=== PATIENT | male | born 1965 | race Caucasian/White ===

== ENCOUNTER 2017-04-11 05:25 | Inpatient (IN) ==
[2017-04-11] MEDS ORDERED: ceFAZolin 1,000 MG in SYRINGE 1 EACH IV ONE (06:00)
[2017-04-11] MEDS ORDERED: ceFAZolin 1,000 MG VIAL IRRIG ONE (06:00)
[2017-04-11 06:59] LABS: Basophils # 0.2 10*3/uL (0.0-0.2); Basophils % 1.4 % (0.0-0.8); Eosinophils # 0.2 10*3/uL (0.0-0.87); Eosinophils % 1.4 % (0.00-10.9); Hematocrit 41.6 VOL% (42.0-52.0); Immature Granulocytes % 0.4 %; Immature Granulocytes Absolute 0.04 #; Lymphocytes # 2.1 10*3/uL (1.4-4.0); Lymphocytes % 19.9 % (21.2-54.2); Mean Corpuscular HGB Conc 31.3 GM/DL (32-36); Mean Corpuscular Hemoglobin 30 PG (27-34); Mean Corpuscular Volume 95.6 FL (87-102); Mean Platelet Volume 10.7 FL (9.6-12.0); Monocytes # 0.7 10*3/uL (0.11-0.8); Monocytes % 6.6 % (1.7-12.7); Neutrophils # 7.3 10*3/uL (1.4-7.4); Neutrophils % 70.3 % (38.7-73.9); Platelet Count 308 T/CUMM (130-400); Red Blood Count 4.35 MC/CUMM (3.8-5.5); Red Cell Distribution Width 15.9 % (9.3-17.3); White Blood Count 10.4 T/CUMM (4-12)
[2017-04-11 07:36] LABS: Osmolality,Calculated 301.5 MOS/KG (273-304); Potassium 3.5 MMOL/L (3.5-5.1)
[2017-04-11 07:43] LABS: Apearance,Urine CLEAR (Clear); Bilirubin,Urine Negative (Negative); Blood, Urine Small mg/dL (Negative); Glucose,Urine (UA) >=500 mg/dL (Negative); Ketones,Urine 5 mg/dL (Negative); Nitrite,Urine Negative (Negative); Protein,Urine >=500 MG/DL; RBC,Urine 1 /HPF (0-4); Urine Color Yellow (Yellow); Urine Urobilinogen < 2.0 EU/DL (0.2-1.0); WBC,Urine 1 /HPF (0-6)
[2017-04-11] MEDS ORDERED: guaiFENesin/DM ER 600-30 MG TABLET PO PRN (07:48)
[2017-04-11] MEDS ORDERED: BISACODYL 5 MG TABLET PO PRN (07:48)
[2017-04-11] MEDS ORDERED: ZALEPLON 5 MG CAPSULE PO PRN (07:48)
[2017-04-11] MEDS ORDERED: NICOTINE 21 MG/24 HR PATCH TRANSDERM PRN (07:48)
[2017-04-11] MEDS ORDERED: ONDANSETRON 4 MG/2 ML VIAL IV PRN (07:48)
[2017-04-11] MEDS ORDERED: MAGNESIUM SULF RIDER 4 GM in PREMIX 1 EACH IV PRN (07:48)
[2017-04-11] MEDS ORDERED: MAGNESIUM SULF RIDER 2 GM in PREMIX 1 EACH IV PRN (07:48)
[2017-04-11] MEDS ORDERED: GLUCAGON 1 MG VIAL IM PRN ×2 (07:48→11:28)
[2017-04-11] MEDS ORDERED: INSULIN REGULAR 100 UNIT/ML SUBCUT ONE (07:54)
[2017-04-11] MEDS ORDERED: MAGNESIUM SULF RIDER 50 ML IV ONE (08:21)
[2017-04-11] MEDS ORDERED: POTASSIUM CHLORIDE 20 MEQ PACK PO ONE (08:22)
[2017-04-11] MEDS ORDERED: ALPRAZolam 0.25 MG TABLET PO PRN (10:41)
[2017-04-11] MEDS: LISINOPRIL 10 MG TABLET PO SCH (11:10)
[2017-04-11] MEDS: CLOPIDOGREL 75 MG TABLET PO SCH (11:13)
[2017-04-11] MEDS: ASPIRIN EC 81 MG TABLET PO SCH (11:13)
[2017-04-11] MEDS: PANTOPRAZOLE 40 MG TABLET PO SCH (11:14)
[2017-04-11] MEDS: SPIRONOLACTONE 25 MG TABLET PO SCH (11:14)
[2017-04-11] MEDS: ENOXAPARIN 40 MG/0.4 ML SYRINGE SUBCUT SCH (11:16)
[2017-04-11] MEDS: AZITHROMYCIN 250 MG TABLET PO SCH (11:16)
[2017-04-11] MEDS ORDERED: DEXTROSE 50% 25 GM/50 ML VIAL IV PRN (11:28)
[2017-04-11] MEDS: MAGNESIUM OXIDE 400 MG TABLET PO SCH ×2 (13:08→21:51)
[2017-04-11 13:13] LABS: Calcium 7.4 MG/DL (8.5-10.1); Osmolality,Calculated 286.8 MOS/KG (273-304); Potassium 3.1 MMOL/L (3.5-5.1)
[2017-04-11] MEDS: CARVEDILOL 6.25 MG TABLET PO SCH ×2 (13:16→21:51)
[2017-04-11] MEDS: GABAPENTIN 100 MG CAPSULE PO SCH ×3 (13:16→21:52)
[2017-04-11] MEDS ORDERED: POTASSIUM CHLORIDE 20 MEQ TABLET PO ONE (13:28)
[2017-04-11] MEDS: POTASSIUM CHLORIDE 20 MEQ TABLET PO SCH ×2 (13:30→21:52)
[2017-04-11] MEDS: INSULIN LISPRO 100 UNIT/ML SUBCUT SCH ×3 (13:55→21:52)
[2017-04-11] MEDS: cefTRIAXone 1,000 MG in SYRINGE 1 EACH IV SCH (15:17)
[2017-04-11] MEDS: INSULIN GLARGINE 100 UNIT/ML SUBCUT SCH (16:01)
[2017-04-11] MEDS ORDERED: PNEUMOCOCCAL VACCINE (13 VALENT) 0.5 ML SYRINGE IM ONE (16:14)
[2017-04-11] MEDS ORDERED: INFLUENZA VIRUS VACCINE 0.5 ML SYRINGE IM ONE (16:14)
[2017-04-11] MEDS: ALBUTEROL 2.5 MG/3 ML NEB RESP TX PRN (16:20)
[2017-04-11] MEDS: ACETAMINOPHEN 325 MG TABLET PO PRN (21:51)
[2017-04-11] MEDS: ATORVASTATIN 80 MG TABLET PO SCH (21:51)
[2017-04-12 05:11] LABS: Basophils # 0.1 10*3/uL (0.0-0.2); Basophils % 1.2 % (0.0-0.8); Eosinophils # 0.4 10*3/uL (0.0-0.87); Eosinophils % 3.9 % (0.00-10.9); Hematocrit 36.1 VOL% (42.0-52.0); Hemoglobin 12.2 GM/DL (14.0-18.0); Immature Granulocytes % 0.3 %; Immature Granulocytes Absolute 0.03 #; Lymphocytes # 2.7 10*3/uL (1.4-4.0); Lymphocytes % 26.6 % (21.2-54.2); Mean Corpuscular HGB Conc 33.8 GM/DL (32-36); Mean Corpuscular Hemoglobin 31 PG (27-34); Mean Corpuscular Volume 90.3 FL (87-102); Mean Platelet Volume 10.8 FL (9.6-12.0); Monocytes # 0.6 10*3/uL (0.11-0.8); Monocytes % 6.4 % (1.7-12.7); Neutrophils # 6.2 10*3/uL (1.4-7.4); Neutrophils % 61.6 % (38.7-73.9); Platelet Count 276 T/CUMM (130-400); Red Cell Distribution Width 15.9 % (9.3-17.3)
[2017-04-12 05:42] LABS: Calcium 7.7 MG/DL (8.5-10.1); Osmolality,Calculated 279.4 MOS/KG (273-304); Potassium 3.4 MMOL/L (3.5-5.1)
[2017-04-12 06:06] LABS: Calcium 7.4 MG/DL (8.5-10.1); Osmolality,Calculated 279.4 MOS/KG (273-304); Potassium 3.4 MMOL/L (3.5-5.1); Thyroid Stimulating Hormone 4.2 uIU/ml (0.358-3.74)
[2017-04-12] MEDS ORDERED: ALBUTEROL 0.63 MG/3 ML NEB RESP TX PRN (08:00)
[2017-04-12] MEDS ORDERED: ceFAZolin 1,000 MG VIAL IRRIG ONE ×2 (08:00→08:30)
[2017-04-12] MEDS ORDERED: ceFAZolin 1,000 MG in SYRINGE 1 EACH IV ONE (08:00)
[2017-04-12] MEDS: INSULIN LISPRO 100 UNIT/ML SUBCUT SCH ×4 (10:11→21:31)
[2017-04-12] MEDS: ENOXAPARIN 40 MG/0.4 ML SYRINGE SUBCUT SCH (10:11)
[2017-04-12] MEDS: AZITHROMYCIN 250 MG TABLET PO SCH (10:12)
[2017-04-12] MEDS: LISINOPRIL 10 MG TABLET PO SCH (10:12)
[2017-04-12] MEDS: POTASSIUM CHLORIDE 20 MEQ TABLET PO SCH ×2 (10:12→21:30)
[2017-04-12] MEDS: MAGNESIUM OXIDE 400 MG TABLET PO SCH ×2 (10:12→21:30)
[2017-04-12] MEDS: GABAPENTIN 100 MG CAPSULE PO SCH ×3 (10:12→21:31)
[2017-04-12] MEDS: PANTOPRAZOLE 40 MG TABLET PO SCH (10:13)
[2017-04-12] MEDS: CLOPIDOGREL 75 MG TABLET PO SCH (10:13)
[2017-04-12] MEDS: SPIRONOLACTONE 25 MG TABLET PO SCH (10:13)
[2017-04-12] MEDS: ASPIRIN EC 81 MG TABLET PO SCH (10:13)
[2017-04-12] MEDS: CARVEDILOL 6.25 MG TABLET PO SCH ×2 (10:13→22:09)
[2017-04-12] MEDS: cefTRIAXone 1,000 MG in SYRINGE 1 EACH IV SCH (10:13)
[2017-04-12] MEDS: LURASIDONE HCL PO SCH ×2 (10:15→10:19)
[2017-04-12] MEDS: FUROSEMIDE 40 MG/4 ML VIAL IV SCH ×2 (10:15→16:04)
[2017-04-12] MEDS: INSULIN GLARGINE 100 UNIT/ML SUBCUT SCH (13:16)
[2017-04-12] MEDS: ALBUTEROL 0.63 MG/3 ML NEB RESP TX SCH ×2 (14:52→19:22)
[2017-04-12] MEDS ORDERED: SKIN HEALING OINT (AQUAPHOR) 50 GM TUBE TOP PRN (15:29)
[2017-04-12] MEDS ORDERED: diphenhydrAMINE CAP 25 MG CAPSULE PO PRN (16:15)
[2017-04-12] MEDS ORDERED: MAGNESIUM SULF RIDER 2 GM in PREMIX 1 EACH IV PRN (16:17)
[2017-04-12] MEDS ORDERED: MAGNESIUM SULF RIDER 4 GM in PREMIX 1 EACH IV PRN (16:17)
[2017-04-12] MEDS: BACITRACIN OINT 0.9 GM PACK TOP SCH (18:24)
[2017-04-12] MEDS: ATORVASTATIN 80 MG TABLET PO SCH (21:31)
[2017-04-13] MEDS: ACETAMINOPHEN 325 MG TABLET PO PRN ×2 (01:12→21:43)
[2017-04-13 04:58] LABS: Basophils # 0.2 10*3/uL (0.0-0.2); Basophils % 1.5 % (0.0-0.8); Eosinophils # 0.4 10*3/uL (0.0-0.87); Eosinophils % 3.9 % (0.00-10.9); Hematocrit 37.8 VOL% (42.0-52.0); Hemoglobin 11.9 GM/DL (14.0-18.0); Immature Granulocytes % 0.3 %; Immature Granulocytes Absolute 0.03 #; Lymphocytes % 29.9 % (21.2-54.2); Mean Corpuscular HGB Conc 31.5 GM/DL (32-36); Mean Corpuscular Hemoglobin 30 PG (27-34); Mean Corpuscular Volume 94.5 FL (87-102); Mean Platelet Volume 10.1 FL (9.6-12.0); Monocytes # 0.7 10*3/uL (0.11-0.8); Monocytes % 6.4 % (1.7-12.7); Neutrophils # 5.9 10*3/uL (1.4-7.4); Platelet Count 345 T/CUMM (130-400); Red Cell Distribution Width 16.3 % (9.3-17.3); White Blood Count 10.1 T/CUMM (4-12)
[2017-04-13 05:34] LABS: Calcium 7.6 MG/DL (8.5-10.1); Osmolality,Calculated 274.5 MOS/KG (273-304); Potassium 4.1 MMOL/L (3.5-5.1)
[2017-04-13] MEDS: ALBUTEROL 0.63 MG/3 ML NEB RESP TX SCH ×4 (07:29→19:47)
[2017-04-13] MEDS: DEXTROSE 50% 25 GM/50 ML VIAL IV PRN (07:42)
[2017-04-13] MEDS: INSULIN LISPRO 100 UNIT/ML SUBCUT SCH ×4 (07:49→21:53)
[2017-04-13] MEDS: cefTRIAXone 1,000 MG in SYRINGE 1 EACH IV SCH (09:45)
[2017-04-13] MEDS: ENOXAPARIN 40 MG/0.4 ML SYRINGE SUBCUT SCH (09:45)
[2017-04-13] MEDS: FUROSEMIDE 40 MG/4 ML VIAL IV SCH ×2 (09:45→16:09)
[2017-04-13] MEDS: LISINOPRIL 10 MG TABLET PO SCH (11:17)
[2017-04-13] MEDS: AZITHROMYCIN 250 MG TABLET PO SCH (11:17)
[2017-04-13] MEDS: BACITRACIN OINT 0.9 GM PACK TOP SCH (11:17)
[2017-04-13] MEDS: CARVEDILOL 6.25 MG TABLET PO SCH ×2 (11:17→21:43)
[2017-04-13] MEDS: CLOPIDOGREL 75 MG TABLET PO SCH (11:17)
[2017-04-13] MEDS: SPIRONOLACTONE 25 MG TABLET PO SCH (11:18)
[2017-04-13] MEDS: MAGNESIUM OXIDE 400 MG TABLET PO SCH ×2 (11:18→21:42)
[2017-04-13] MEDS: PANTOPRAZOLE 40 MG TABLET PO SCH (11:18)
[2017-04-13] MEDS: POTASSIUM CHLORIDE 20 MEQ TABLET PO SCH ×2 (11:18→21:42)
[2017-04-13] MEDS: GABAPENTIN 100 MG CAPSULE PO SCH ×3 (11:19→21:42)
[2017-04-13] MEDS: ASPIRIN EC 81 MG TABLET PO SCH (11:19)
[2017-04-13] MEDS: LURASIDONE HCL PO SCH (11:20)
[2017-04-13] MEDS: INSULIN GLARGINE 100 UNIT/ML SUBCUT SCH (11:53)
[2017-04-13] MEDS ORDERED: INSULIN GLARGINE 100 UNIT/ML SUBCUT SCH (16:57)
[2017-04-13] MEDS: ATORVASTATIN 80 MG TABLET PO SCH (21:42)
[2017-04-13] MEDS: CHLORHEXIDINE 0.12% ORAL RINSE 60 ML BOTTLE SWISH/SPIT SCH (21:53)
[2017-04-14] MEDS: ALBUTEROL 0.63 MG/3 ML NEB RESP TX SCH ×4 (01:36→18:51)
[2017-04-14 05:14] LABS: Basophils # 0.1 10*3/uL (0.0-0.2); Basophils % 1.3 % (0.0-0.8); Eosinophils # 0.3 10*3/uL (0.0-0.87); Eosinophils % 3.8 % (0.00-10.9); Hematocrit 35.3 VOL% (42.0-52.0); Hemoglobin 11.4 GM/DL (14.0-18.0); Immature Granulocytes % 0.4 %; Immature Granulocytes Absolute 0.03 #; Lymphocytes # 2.5 10*3/uL (1.4-4.0); Mean Corpuscular HGB Conc 32.3 GM/DL (32-36); Mean Corpuscular Hemoglobin 31 PG (27-34); Mean Corpuscular Volume 94.9 FL (87-102); Mean Platelet Volume 10.9 FL (9.6-12.0); Monocytes # 0.6 10*3/uL (0.11-0.8); Monocytes % 6.7 % (1.7-12.7); Neutrophils # 4.8 10*3/uL (1.4-7.4); Neutrophils % 57.8 % (38.7-73.9); Platelet Count 267 T/CUMM (130-400); Red Blood Count 3.72 MC/CUMM (3.8-5.5); Red Cell Distribution Width 16.6 % (9.3-17.3); White Blood Count 8.4 T/CUMM (4-12)
[2017-04-14 05:46] LABS: Calcium 7.9 MG/DL (8.5-10.1); Osmolality,Calculated 286.1 MOS/KG (273-304); Potassium 4.7 MMOL/L (3.5-5.1)
[2017-04-14 05:47] LABS: Calcium 7.9 MG/DL (8.5-10.1); Osmolality,Calculated 284.3 MOS/KG (273-304); Potassium 4.6 MMOL/L (3.5-5.1)
[2017-04-14] MEDS: ASPIRIN EC 81 MG TABLET PO SCH (09:18)
[2017-04-14] MEDS: POTASSIUM CHLORIDE 20 MEQ TABLET PO SCH ×2 (09:18→21:34)
[2017-04-14] MEDS: AZITHROMYCIN 250 MG TABLET PO SCH (09:19)
[2017-04-14] MEDS: CARVEDILOL 6.25 MG TABLET PO SCH ×2 (09:19→21:29)
[2017-04-14] MEDS: CLOPIDOGREL 75 MG TABLET PO SCH (09:19)
[2017-04-14] MEDS: MAGNESIUM OXIDE 400 MG TABLET PO SCH ×2 (09:19→21:29)
[2017-04-14] MEDS: PANTOPRAZOLE 40 MG TABLET PO SCH (09:19)
[2017-04-14] MEDS: SPIRONOLACTONE 25 MG TABLET PO SCH (09:20)
[2017-04-14] MEDS: LISINOPRIL 10 MG TABLET PO SCH (09:20)
[2017-04-14] MEDS: BACITRACIN OINT 0.9 GM PACK TOP SCH (09:20)
[2017-04-14] MEDS: ENOXAPARIN 40 MG/0.4 ML SYRINGE SUBCUT SCH (09:20)
[2017-04-14] MEDS: GABAPENTIN 100 MG CAPSULE PO SCH ×3 (09:20→21:28)
[2017-04-14] MEDS: FUROSEMIDE 40 MG/4 ML VIAL IV SCH (09:25)
[2017-04-14] MEDS: INSULIN LISPRO 100 UNIT/ML SUBCUT SCH ×4 (09:31→21:34)
[2017-04-14] MEDS: CHLORHEXIDINE 0.12% ORAL RINSE 60 ML BOTTLE SWISH/SPIT SCH ×2 (09:32→21:27)
[2017-04-14] MEDS: LURASIDONE HCL PO SCH (09:33)
[2017-04-14] MEDS: cefTRIAXone 1,000 MG in SYRINGE 1 EACH IV SCH (10:11)
[2017-04-14] MEDS: ZINC OXIDE PASTE 113 GM TUBE TOP SCH ×2 (13:06→21:30)
[2017-04-14] MEDS: FUROSEMIDE 40 MG TABLET PO SCH (15:44)
[2017-04-14] MEDS: ATORVASTATIN 80 MG TABLET PO SCH (21:28)
[2017-04-15] MEDS: ALBUTEROL 0.63 MG/3 ML NEB RESP TX SCH ×4 (00:09→19:36)
[2017-04-15 05:21] LABS: Basophils # 0.1 10*3/uL (0.0-0.2); Basophils % 1.5 % (0.0-0.8); Eosinophils # 0.3 10*3/uL (0.0-0.87); Eosinophils % 3.1 % (0.00-10.9); Hematocrit 37.8 VOL% (42.0-52.0); Hemoglobin 12.2 GM/DL (14.0-18.0); Immature Granulocytes % 0.3 %; Immature Granulocytes Absolute 0.03 #; Lymphocytes # 3.1 10*3/uL (1.4-4.0); Lymphocytes % 33.5 % (21.2-54.2); Mean Corpuscular HGB Conc 32.3 GM/DL (32-36); Mean Corpuscular Hemoglobin 30 PG (27-34); Mean Corpuscular Volume 93.8 FL (87-102); Mean Platelet Volume 10.7 FL (9.6-12.0); Monocytes # 0.7 10*3/uL (0.11-0.8); Monocytes % 7.2 % (1.7-12.7); Neutrophils # 5.1 10*3/uL (1.4-7.4); Neutrophils % 54.4 % (38.7-73.9); Platelet Count 319 T/CUMM (130-400); Red Blood Count 4.03 MC/CUMM (3.8-5.5); Red Cell Distribution Width 16.6 % (9.3-17.3); White Blood Count 9.3 T/CUMM (4-12)
[2017-04-15 05:44] LABS: Osmolality,Calculated 276.5 MOS/KG (273-304)
[2017-04-15] MEDS: INSULIN LISPRO 100 UNIT/ML SUBCUT SCH ×4 (07:15→21:17)
[2017-04-15] MEDS: POTASSIUM CHLORIDE 20 MEQ TABLET PO SCH (09:34)
[2017-04-15] MEDS: BACITRACIN OINT 0.9 GM PACK TOP SCH (09:35)
[2017-04-15] MEDS: ENOXAPARIN 40 MG/0.4 ML SYRINGE SUBCUT SCH (09:35)
[2017-04-15] MEDS: PANTOPRAZOLE 40 MG TABLET PO SCH (09:36)
[2017-04-15] MEDS: CLOPIDOGREL 75 MG TABLET PO SCH (09:36)
[2017-04-15] MEDS: GABAPENTIN 100 MG CAPSULE PO SCH ×3 (09:36→21:19)
[2017-04-15] MEDS: CARVEDILOL 6.25 MG TABLET PO SCH ×2 (09:36→21:20)
[2017-04-15] MEDS: SPIRONOLACTONE 25 MG TABLET PO SCH (09:36)
[2017-04-15] MEDS: SODIUM POLYSTYRENE SULFATE 15 GM/60 ML BOTTLE PO SCH ×2 (09:36→09:48)
[2017-04-15] MEDS: MAGNESIUM OXIDE 400 MG TABLET PO SCH ×2 (09:36→21:18)
[2017-04-15] MEDS: ASPIRIN EC 81 MG TABLET PO SCH (09:37)
[2017-04-15] MEDS: LISINOPRIL 10 MG TABLET PO SCH (09:37)
[2017-04-15] MEDS: AZITHROMYCIN 250 MG TABLET PO SCH (09:37)
[2017-04-15] MEDS: FUROSEMIDE 40 MG TABLET PO SCH ×2 (09:37→15:35)
[2017-04-15] MEDS: ZINC OXIDE PASTE 113 GM TUBE TOP SCH ×2 (09:38→21:19)
[2017-04-15] MEDS: LURASIDONE HCL PO SCH (09:38)
[2017-04-15] MEDS: CHLORHEXIDINE 0.12% ORAL RINSE 60 ML BOTTLE SWISH/SPIT SCH ×2 (09:38→21:16)
[2017-04-15] MEDS ORDERED: SODIUM POLYSTYRENE SULFATE 15 GM/60 ML BOTTLE PO STA (11:18)
[2017-04-15] MEDS: INSULIN NPH/REGULAR 70/30 100 UNIT/ML SUBCUT SCH (15:34)
[2017-04-15] MEDS: ATORVASTATIN 80 MG TABLET PO SCH (21:18)
[2017-04-15] MEDS: AMITRIPTYLINE 50 MG TABLET PO SCH (21:20)
[2017-04-16] MEDS: ACETAMINOPHEN 325 MG TABLET PO PRN ×2 (00:05→12:55)
[2017-04-16] MEDS: ALBUTEROL 0.63 MG/3 ML NEB RESP TX SCH ×4 (01:25→19:04)
[2017-04-16] MEDS: DEXTROSE 50% 25 GM/50 ML VIAL IV PRN (04:58)
[2017-04-16 05:41] LABS: Basophils # 0.1 10*3/uL (0.0-0.2); Eosinophils # 0.3 10*3/uL (0.0-0.87); Eosinophils % 2.4 % (0.00-10.9); Hematocrit 36.1 VOL% (42.0-52.0); Hemoglobin 11.4 GM/DL (14.0-18.0); Immature Granulocytes % 0.5 %; Immature Granulocytes Absolute 0.05 #; Lymphocytes % 18.6 % (21.2-54.2); Mean Corpuscular HGB Conc 31.6 GM/DL (32-36); Mean Corpuscular Hemoglobin 30 PG (27-34); Mean Corpuscular Volume 95.3 FL (87-102); Mean Platelet Volume 10.7 FL (9.6-12.0); Monocytes # 0.7 10*3/uL (0.11-0.8); Monocytes % 6.7 % (1.7-12.7); Neutrophils # 7.5 10*3/uL (1.4-7.4); Neutrophils % 70.8 % (38.7-73.9); Platelet Count 250 T/CUMM (130-400); Red Blood Count 3.79 MC/CUMM (3.8-5.5); Red Cell Distribution Width 16.2 % (9.3-17.3); White Blood Count 10.6 T/CUMM (4-12)
[2017-04-16 06:04] LABS: Calcium 8.4 MG/DL (8.5-10.1); Osmolality,Calculated 277.8 MOS/KG (273-304); Potassium 5.1 MMOL/L (3.5-5.1)
[2017-04-16] MEDS: GABAPENTIN 100 MG CAPSULE PO SCH ×3 (09:16→21:19)
[2017-04-16] MEDS: MAGNESIUM OXIDE 400 MG TABLET PO SCH ×2 (09:16→21:12)
[2017-04-16] MEDS: LISINOPRIL 20 MG TABLET PO SCH (09:16)
[2017-04-16] MEDS: CLOPIDOGREL 75 MG TABLET PO SCH (09:16)
[2017-04-16] MEDS: ASPIRIN EC 81 MG TABLET PO SCH (09:16)
[2017-04-16] MEDS: AZITHROMYCIN 250 MG TABLET PO SCH (09:16)
[2017-04-16] MEDS: PANTOPRAZOLE 40 MG TABLET PO SCH (09:17)
[2017-04-16] MEDS: BACITRACIN OINT 0.9 GM PACK TOP SCH (09:17)
[2017-04-16] MEDS: CARVEDILOL 6.25 MG TABLET PO SCH ×2 (09:17→21:12)
[2017-04-16] MEDS: CHLORHEXIDINE 0.12% ORAL RINSE 60 ML BOTTLE SWISH/SPIT SCH ×2 (09:17→21:20)
[2017-04-16] MEDS: ENOXAPARIN 40 MG/0.4 ML SYRINGE SUBCUT SCH (09:18)
[2017-04-16] MEDS: FUROSEMIDE 40 MG/4 ML VIAL IV SCH ×2 (09:18→16:05)
[2017-04-16] MEDS: LURASIDONE HCL PO SCH (09:18)
[2017-04-16] MEDS: INSULIN LISPRO 100 UNIT/ML SUBCUT SCH ×4 (09:19→21:13)
[2017-04-16] MEDS: INSULIN NPH/REGULAR 70/30 100 UNIT/ML SUBCUT SCH (09:19)
[2017-04-16] MEDS: ZINC OXIDE PASTE 113 GM TUBE TOP SCH ×2 (09:23→21:13)
[2017-04-16] MEDS: NICOTINE 14 MG/24 HR PATCH TRANSDERM SCH (11:39)
[2017-04-16] MEDS: AMITRIPTYLINE 50 MG TABLET PO SCH (21:12)
[2017-04-16] MEDS: ATORVASTATIN 80 MG TABLET PO SCH (21:12)
[2017-04-17] MEDS: ALBUTEROL 0.63 MG/3 ML NEB RESP TX SCH ×4 (01:30→21:13)
[2017-04-17 05:01] LABS: Basophils # 0.1 10*3/uL (0.0-0.2); Basophils % 1.4 % (0.0-0.8); Eosinophils # 0.3 10*3/uL (0.0-0.87); Eosinophils % 4.1 % (0.00-10.9); Hematocrit 34.3 VOL% (42.0-52.0); Hemoglobin 10.9 GM/DL (14.0-18.0); Immature Granulocytes % 0.8 %; Immature Granulocytes Absolute 0.06 #; Lymphocytes # 2.4 10*3/uL (1.4-4.0); Lymphocytes % 32.9 % (21.2-54.2); Mean Corpuscular HGB Conc 31.8 GM/DL (32-36); Mean Corpuscular Hemoglobin 30 PG (27-34); Mean Corpuscular Volume 94.2 FL (87-102); Mean Platelet Volume 11.2 FL (9.6-12.0); Monocytes # 0.5 10*3/uL (0.11-0.8); Monocytes % 6.8 % (1.7-12.7); Platelet Count 248 T/CUMM (130-400); Red Blood Count 3.64 MC/CUMM (3.8-5.5); Red Cell Distribution Width 16.4 % (9.3-17.3); White Blood Count 7.3 T/CUMM (4-12)
[2017-04-17 05:28] LABS: Calcium 8.1 MG/DL (8.5-10.1); Osmolality,Calculated 282.2 MOS/KG (273-304); Potassium 5.7 MMOL/L (3.5-5.1)
[2017-04-17 05:37] LABS: Calcium 7.9 MG/DL (8.5-10.1); Osmolality,Calculated 283.2 MOS/KG (273-304); Potassium 5.7 MMOL/L (3.5-5.1)
[2017-04-17] MEDS ORDERED: ceFAZolin 1,000 MG in SYRINGE 1 EACH IV ONE (06:30)
[2017-04-17] MEDS ORDERED: ceFAZolin 1,000 MG VIAL IRRIG ONE (06:30)
[2017-04-17] MEDS: FUROSEMIDE 40 MG/4 ML VIAL IV SCH (08:58)
[2017-04-17] MEDS: ENOXAPARIN 40 MG/0.4 ML SYRINGE SUBCUT SCH (08:59)
[2017-04-17] MEDS: NICOTINE 14 MG/24 HR PATCH TRANSDERM SCH (08:59)
[2017-04-17] MEDS: INSULIN NPH/REGULAR 70/30 100 UNIT/ML SUBCUT SCH ×3 (08:59→18:03)
[2017-04-17 12:49] LABS: Calcium 8.6 MG/DL (8.5-10.1); Osmolality,Calculated 284.2 MOS/KG (273-304); Potassium 5.3 MMOL/L (3.5-5.1)
[2017-04-17] MEDS: INSULIN LISPRO 100 UNIT/ML SUBCUT SCH ×4 (13:02→21:10)
[2017-04-17] MEDS: ASPIRIN EC 81 MG TABLET PO SCH ×2 (13:32→16:59)
[2017-04-17] MEDS: CARVEDILOL 6.25 MG TABLET PO SCH ×3 (13:32→21:09)
[2017-04-17] MEDS: GABAPENTIN 100 MG CAPSULE PO SCH ×3 (13:33→21:10)
[2017-04-17] MEDS: PANTOPRAZOLE 40 MG TABLET PO SCH (13:33)
[2017-04-17] MEDS: MAGNESIUM OXIDE 400 MG TABLET PO SCH ×2 (13:33→21:09)
[2017-04-17] MEDS: LISINOPRIL 20 MG TABLET PO SCH (13:33)
[2017-04-17] MEDS: AZITHROMYCIN 250 MG TABLET PO SCH ×2 (13:33→17:00)
[2017-04-17] MEDS: BACITRACIN OINT 0.9 GM PACK TOP SCH (13:34)
[2017-04-17] MEDS: CHLORHEXIDINE 0.12% ORAL RINSE 60 ML BOTTLE SWISH/SPIT SCH ×2 (13:34→22:10)
[2017-04-17] MEDS: LURASIDONE HCL PO SCH (13:34)
[2017-04-17] MEDS: ZINC OXIDE PASTE 113 GM TUBE TOP SCH ×2 (13:34→21:12)
[2017-04-17] MEDS ORDERED: LIDOCAINE 1% 20 ML VIAL ONE (13:44)
[2017-04-17] MEDS ORDERED: fentaNYL 100 MCG/2 ML VIAL ONE (13:45)
[2017-04-17] MEDS ORDERED: MIDAZOLAM 2 MG/2 ML VIAL ONE (13:45)
[2017-04-17] MEDS ORDERED: TISSUE ADHESIVE 1 EACH APPLICATOR TOP ONE (13:45)
[2017-04-17] MEDS ORDERED: HEPARIN/NACL 0.9% 2 UNITS/ML 1,000 ML IV ONE (13:46)
[2017-04-17] MEDS: FUROSEMIDE 40 MG TABLET PO SCH (16:46)
[2017-04-17] MEDS: AMITRIPTYLINE 50 MG TABLET PO SCH (21:09)
[2017-04-17] MEDS: ATORVASTATIN 80 MG TABLET PO SCH (21:09)
[2017-04-17] MEDS: ceFAZolin 1,000 MG in SYRINGE 1 EACH IV SCH (22:10)
[2017-04-18] MEDS: ALBUTEROL 0.63 MG/3 ML NEB RESP TX SCH ×4 (01:55→19:10)
[2017-04-18 04:42] LABS: Basophils # 0.1 10*3/uL (0.0-0.2); Basophils % 1.3 % (0.0-0.8); Eosinophils # 0.3 10*3/uL (0.0-0.87); Hematocrit 33.2 VOL% (42.0-52.0); Hemoglobin 10.9 GM/DL (14.0-18.0); Immature Granulocytes % 0.3 %; Immature Granulocytes Absolute 0.02 #; Lymphocytes # 2.1 10*3/uL (1.4-4.0); Lymphocytes % 27.4 % (21.2-54.2); Mean Corpuscular HGB Conc 32.8 GM/DL (32-36); Mean Corpuscular Hemoglobin 30 PG (27-34); Mean Corpuscular Volume 92.2 FL (87-102); Mean Platelet Volume 10.8 FL (9.6-12.0); Monocytes # 0.6 10*3/uL (0.11-0.8); Monocytes % 7.2 % (1.7-12.7); Neutrophils # 4.5 10*3/uL (1.4-7.4); Neutrophils % 59.8 % (38.7-73.9); Platelet Count 269 T/CUMM (130-400); Red Cell Distribution Width 16.3 % (9.3-17.3); White Blood Count 7.6 T/CUMM (4-12)
[2017-04-18 05:22] LABS: Osmolality,Calculated 277.1 MOS/KG (273-304); Potassium 4.9 MMOL/L (3.5-5.1)
[2017-04-18] MEDS: ceFAZolin 1,000 MG in SYRINGE 1 EACH IV SCH (05:38)
[2017-04-18] MEDS: CARVEDILOL 6.25 MG TABLET PO SCH ×2 (09:31→21:06)
[2017-04-18] MEDS: ENOXAPARIN 40 MG/0.4 ML SYRINGE SUBCUT SCH (09:31)
[2017-04-18] MEDS: MAGNESIUM OXIDE 400 MG TABLET PO SCH ×2 (09:31→21:05)
[2017-04-18] MEDS: FUROSEMIDE 40 MG TABLET PO SCH ×2 (09:32→16:28)
[2017-04-18] MEDS: AZITHROMYCIN 250 MG TABLET PO SCH (09:32)
[2017-04-18] MEDS: ASPIRIN EC 81 MG TABLET PO SCH (09:32)
[2017-04-18] MEDS: LURASIDONE HCL PO SCH (09:32)
[2017-04-18] MEDS: GABAPENTIN 100 MG CAPSULE PO SCH ×3 (09:32→21:06)
[2017-04-18] MEDS: PANTOPRAZOLE 40 MG TABLET PO SCH (09:32)
[2017-04-18] MEDS: ZINC OXIDE PASTE 113 GM TUBE TOP SCH ×2 (09:33→21:06)
[2017-04-18] MEDS: BACITRACIN OINT 0.9 GM PACK TOP SCH (09:33)
[2017-04-18] MEDS: INSULIN NPH/REGULAR 70/30 100 UNIT/ML SUBCUT SCH ×2 (09:34→16:29)
[2017-04-18] MEDS: INSULIN LISPRO 100 UNIT/ML SUBCUT SCH ×4 (09:34→22:25)
[2017-04-18] MEDS: CHLORHEXIDINE 0.12% ORAL RINSE 60 ML BOTTLE SWISH/SPIT SCH ×2 (09:34→21:08)
[2017-04-18] MEDS: NICOTINE 14 MG/24 HR PATCH TRANSDERM SCH (09:42)
[2017-04-18] MEDS ORDERED: TUBERCULIN SKIN TEST 0.1 ML SYRINGE INTRADERM ONE (10:30)
[2017-04-18] MEDS ORDERED: INSULIN NPH/REGULAR 70/30 100 UNIT/ML SUBCUT SCH (16:30)
[2017-04-18] MEDS: ATORVASTATIN 80 MG TABLET PO SCH (21:06)
[2017-04-18] MEDS: AMITRIPTYLINE 50 MG TABLET PO SCH (21:06)
[2017-04-19] MEDS: ALBUTEROL 0.63 MG/3 ML NEB RESP TX SCH ×4 (00:04→20:58)
[2017-04-19] MEDS: ALBUTEROL 2.5 MG/3 ML NEB RESP TX PRN (07:01)
[2017-04-19] MEDS: MAGNESIUM OXIDE 400 MG TABLET PO SCH ×2 (09:15→21:27)
[2017-04-19] MEDS: ASPIRIN EC 81 MG TABLET PO SCH (09:15)
[2017-04-19] MEDS: BACITRACIN OINT 0.9 GM PACK TOP SCH (09:15)
[2017-04-19] MEDS: FUROSEMIDE 40 MG TABLET PO SCH ×2 (09:15→16:33)
[2017-04-19] MEDS: AZITHROMYCIN 250 MG TABLET PO SCH (09:16)
[2017-04-19] MEDS: PANTOPRAZOLE 40 MG TABLET PO SCH (09:16)
[2017-04-19] MEDS: CLOPIDOGREL 75 MG TABLET PO SCH (09:16)
[2017-04-19] MEDS: CARVEDILOL 6.25 MG TABLET PO SCH ×2 (09:17→21:27)
[2017-04-19] MEDS: NICOTINE 14 MG/24 HR PATCH TRANSDERM SCH (09:17)
[2017-04-19] MEDS: GABAPENTIN 100 MG CAPSULE PO SCH ×3 (09:17→21:27)
[2017-04-19] MEDS: INSULIN LISPRO 100 UNIT/ML SUBCUT SCH ×4 (09:20→21:33)
[2017-04-19] MEDS: INSULIN NPH/REGULAR 70/30 100 UNIT/ML SUBCUT SCH ×2 (09:20→17:44)
[2017-04-19] MEDS: ENOXAPARIN 40 MG/0.4 ML SYRINGE SUBCUT SCH (11:18)
[2017-04-19] MEDS: LURASIDONE HCL PO SCH (11:18)
[2017-04-19] MEDS: CHLORHEXIDINE 0.12% ORAL RINSE 60 ML BOTTLE SWISH/SPIT SCH ×2 (11:18→21:28)
[2017-04-19] MEDS: ZINC OXIDE PASTE 113 GM TUBE TOP SCH ×2 (11:18→21:33)
[2017-04-19] MEDS: ATORVASTATIN 80 MG TABLET PO SCH (21:27)
[2017-04-19] MEDS: AMITRIPTYLINE 50 MG TABLET PO SCH (21:27)
[2017-04-20] MEDS: ALBUTEROL 0.63 MG/3 ML NEB RESP TX SCH ×3 (01:13→14:16)
[2017-04-20] MEDS: MAGNESIUM OXIDE 400 MG TABLET PO SCH (08:21)
[2017-04-20] MEDS: AZITHROMYCIN 250 MG TABLET PO SCH (08:21)
[2017-04-20] MEDS: CARVEDILOL 6.25 MG TABLET PO SCH (08:22)
[2017-04-20] MEDS: PANTOPRAZOLE 40 MG TABLET PO SCH (08:22)
[2017-04-20] MEDS: INSULIN NPH/REGULAR 70/30 100 UNIT/ML SUBCUT SCH ×2 (08:22→18:00)
[2017-04-20] MEDS: FUROSEMIDE 40 MG TABLET PO SCH ×2 (08:22→16:13)
[2017-04-20] MEDS: ASPIRIN EC 81 MG TABLET PO SCH (08:22)
[2017-04-20] MEDS: GABAPENTIN 100 MG CAPSULE PO SCH ×2 (08:22→16:13)
[2017-04-20] MEDS: INSULIN LISPRO 100 UNIT/ML SUBCUT SCH ×3 (08:22→18:00)
[2017-04-20] MEDS: CLOPIDOGREL 75 MG TABLET PO SCH (08:22)
[2017-04-20] MEDS: LURASIDONE HCL PO SCH (09:17)
[2017-04-20] MEDS: NICOTINE 14 MG/24 HR PATCH TRANSDERM SCH (11:17)
[2017-04-20] MEDS: ENOXAPARIN 40 MG/0.4 ML SYRINGE SUBCUT SCH (11:17)
[2017-04-20] MEDS: CHLORHEXIDINE 0.12% ORAL RINSE 60 ML BOTTLE SWISH/SPIT SCH (11:18)
[2017-04-20] MEDS: BACITRACIN OINT 0.9 GM PACK TOP SCH (15:00)
[2017-04-20] MEDS: ZINC OXIDE PASTE 113 GM TUBE TOP SCH (15:00)
[2017-04-20 15:44] VITALS: BP 106/70
== END 2017-04-20 18:15 | DRG 226 ==
LOC: N.CL 05:25 → N.TELES 15:30
PROVIDERS: ADMIT Internal Medicine Clinical Cardiac Electrophysiology; ATTEND Internal Medicine Clinical Cardiac Electrophysiology
PROC: CLDCICD (2017-04-17 11:15)

== ENCOUNTER 2017-04-24 15:27 | Inpatient (IN) ==
[2017-04-24] MEDS ORDERED: SODIUM CHLORIDE 0.9% 1,000 ML IV STA (16:22)
[2017-04-24 16:33] LABS: Basophils # 0.1 10*3/uL (0.0-0.2); Basophils % 1.3 % (0.0-0.8); Eosinophils % 0.3 % (0.00-10.9); Hematocrit 43.7 VOL% (42.0-52.0); Hemoglobin 14.1 GM/DL (14.0-18.0); Immature Granulocytes % 0.5 %; Immature Granulocytes Absolute 0.05 #; Lymphocytes % 20.8 % (21.2-54.2); Mean Corpuscular HGB Conc 32.3 GM/DL (32-36); Mean Corpuscular Hemoglobin 30 PG (27-34); Mean Corpuscular Volume 93.8 FL (87-102); Mean Platelet Volume 10.2 FL (9.6-12.0); Monocytes # 0.7 10*3/uL (0.11-0.8); Monocytes % 7.6 % (1.7-12.7); Neutrophils # 6.5 10*3/uL (1.4-7.4); Neutrophils % 69.5 % (38.7-73.9); Platelet Count 294 T/CUMM (130-400); Red Blood Count 4.66 MC/CUMM (3.8-5.5); Red Cell Distribution Width 15.8 % (9.3-17.3); White Blood Count 9.4 T/CUMM (4-12)
[2017-04-24 16:41] LABS: Apearance,Urine CLEAR (Clear); Bilirubin,Urine Negative (Negative); Blood, Urine Small mg/dL (Negative); Glucose,Urine (UA) >=500 mg/dL (Negative); Ketones,Urine 20 mg/dL (Negative); Nitrite,Urine Negative (Negative); Protein,Urine >=500 MG/DL; RBC,Urine 2 /HPF (0-4); Urine Color Yellow (Yellow); Urine Specific Gravity 1.016 (1.001-1.035); Urine Urobilinogen < 2.0 EU/DL (0.2-1.0); WBC,Urine 1 /HPF (0-6)
[2017-04-24 17:12] LABS: Albumin 2.6 G/DL (3.4-5.0); Bilirubin,Total 0.7 MG/DL (0.2-1.0); Calcium 8.2 MG/DL (8.5-10.1); Osmolality,Calculated 294.4 MOS/KG (273-304); Potassium 5.3 MMOL/L (3.5-5.1); Total Protein 6.5 G/DL (6.4-8.3)
[2017-04-24] MEDS ORDERED: INSULIN REGULAR 100 UNIT/ML IV ONE (17:46)
[2017-04-24 18:05] LABS: ABG Base Excess -6.4 MMOL/L (-2.5-2.5); ABG HCO3 19.2 MMOL/L (20-26); ABG Oxygen Saturation 96.4 % (95-100); ABG PCO2 33.1 MM HG (35-48); ABG PO2 86.4 MM HG (80-95); Allen Test Positive
[2017-04-24] MEDS ORDERED: INSULIN REGULAR 100 UNIT/ML ONE (18:15)
[2017-04-24] MEDS ORDERED: SODIUM PHOSPHATE IV PRN (18:50)
[2017-04-24] MEDS ORDERED: DEXTROSE 50% 25 GM/50 ML VIAL IV PRN ×2 (18:50)
[2017-04-24] MEDS ORDERED: MAGNESIUM SULF RIDER 4 GM in PREMIX 1 EACH IV PRN (18:50)
[2017-04-24] MEDS ORDERED: SODIUM CHLORIDE 0.9% IV PRN (18:50)
[2017-04-24] MEDS ORDERED: guaiFENesin/DM ER 600-30 MG TABLET PO PRN (18:50)
[2017-04-24] MEDS ORDERED: ACETAMINOPHEN 325 MG TABLET PO PRN (18:50)
[2017-04-24] MEDS ORDERED: SODIUM BICARB INJ 100 MEQ in STERILE WATER INJ 400 ML IV PRN (18:50)
[2017-04-24] MEDS ORDERED: INSULIN REGULAR DRIP 100 ML IV SCH (18:50)
[2017-04-24] MEDS ORDERED: ONDANSETRON 4 MG/2 ML VIAL IV PRN (18:50)
[2017-04-24] MEDS ORDERED: SKIN HEALING OINT (AQUAPHOR) 50 GM TUBE TOP PRN (18:50)
[2017-04-24] MEDS ORDERED: POTASSIUM CHLORIDE RIDER 10 MEQ in PREMIX 1 EACH IV PRN (18:50)
[2017-04-24] MEDS ORDERED: MAGNESIUM SULF RIDER 2 GM in PREMIX 1 EACH IV PRN (18:50)
[2017-04-24] MEDS ORDERED: SODIUM CHLORIDE 0.9% 1,000 ML IV SCH ×2 (19:00→23:08)
[2017-04-24 19:11] LABS: Basophils # 0.1 10*3/uL (0.0-0.2); Basophils % 1.2 % (0.0-0.8); Eosinophils # 0.1 10*3/uL (0.0-0.87); Eosinophils % 0.7 % (0.00-10.9); Hematocrit 39.2 VOL% (42.0-52.0); Hemoglobin 13.1 GM/DL (14.0-18.0); Immature Granulocytes % 0.2 %; Immature Granulocytes Absolute 0.02 #; Lymphocytes % 21.4 % (21.2-54.2); Mean Corpuscular HGB Conc 33.4 GM/DL (32-36); Mean Corpuscular Hemoglobin 31 PG (27-34); Mean Corpuscular Volume 92.5 FL (87-102); Mean Platelet Volume 10.3 FL (9.6-12.0); Monocytes # 0.9 10*3/uL (0.11-0.8); Monocytes % 9.2 % (1.7-12.7); Neutrophils # 6.3 10*3/uL (1.4-7.4); Neutrophils % 67.3 % (38.7-73.9); Platelet Count 283 T/CUMM (130-400); Red Blood Count 4.24 MC/CUMM (3.8-5.5); Red Cell Distribution Width 15.9 % (9.3-17.3); White Blood Count 9.4 T/CUMM (4-12)
[2017-04-24 19:38] LABS: Calcium 8.1 MG/DL (8.5-10.1); Osmolality,Calculated 298.9 MOS/KG (273-304); Potassium 4.8 MMOL/L (3.5-5.1)
[2017-04-24 20:03] LABS: Apearance,Urine CLEAR (Clear); Bilirubin,Urine Negative (Negative); Blood, Urine Small mg/dL (Negative); Glucose,Urine (UA) >=500 mg/dL (Negative); Ketones,Urine 20 mg/dL (Negative); Mucus,Urine Occasional /LPF (Occasional); Nitrite,Urine Negative (Negative); Protein,Urine 100 MG/DL; RBC,Urine 2 /HPF (0-4); Squamous Epithelial Cell,Urine Occasional /HPF (0-10); Urine Color Straw (Yellow); Urine Specific Gravity 1.013 (1.001-1.035); Urine Urobilinogen < 2.0 EU/DL (0.2-1.0); WBC,Urine <1 /HPF (0-6)
[2017-04-24] MEDS: ATORVASTATIN 80 MG TABLET PO SCH (20:26)
[2017-04-24] MEDS: ZINC OXIDE PASTE 113 GM TUBE TOP SCH (20:27)
[2017-04-24] MEDS: GABAPENTIN 100 MG CAPSULE PO SCH (20:27)
[2017-04-24] MEDS: ENOXAPARIN 30 MG/0.3 ML SYRINGE SUBCUT SCH (20:27)
[2017-04-24] MEDS: AMITRIPTYLINE 50 MG TABLET PO SCH (20:27)
[2017-04-24] MEDS: CARVEDILOL 6.25 MG TABLET PO SCH (20:27)
[2017-04-24 20:39] LABS: ABG Base Excess -1.4 MMOL/L (-2.5-2.5); ABG HCO3 23.2 MMOL/L (20-26); ABG Oxygen Saturation 97.1 % (95-100); ABG PCO2 35.4 MM HG (35-48); ABG PH 7.413 (7.35-7.45); ABG PO2 87.7 MM HG (80-95); ABG TCO2 19.7 MMOL/L (23-27)
[2017-04-24] MEDS ORDERED: ZINC OXIDE PASTE 113 GM TUBE TOP SCH (21:00)
[2017-04-24] MEDS ORDERED: POTASSIUM CHLORIDE 20 MEQ TABLET PO PRN (21:13)
[2017-04-24 22:32] LABS: ABG Base Excess 4.2 MMOL/L (-2.5-2.5); ABG HCO3 28.1 MMOL/L (20-26); ABG Oxygen Saturation 95.1 % (95-100); ABG PCO2 40.9 MM HG (35-48); ABG PH 7.452 (7.35-7.45); ABG PO2 71.2 MM HG (80-95); ABG TCO2 24.8 MMOL/L (23-27)
[2017-04-24 23:04] LABS: Calcium 8.3 MG/DL (8.5-10.1); Osmolality,Calculated 287.5 MOS/KG (273-304)
[2017-04-25 03:10] LABS: Basophils # 0.2 10*3/uL (0.0-0.2); Basophils % 1.4 % (0.0-0.8); Eosinophils # 0.3 10*3/uL (0.0-0.87); Eosinophils % 2.9 % (0.00-10.9); Hematocrit 39.9 VOL% (42.0-52.0); Hemoglobin 13.3 GM/DL (14.0-18.0); Immature Granulocytes % 0.4 %; Immature Granulocytes Absolute 0.04 #; Lymphocytes # 3.3 10*3/uL (1.4-4.0); Lymphocytes % 30.6 % (21.2-54.2); Mean Corpuscular HGB Conc 33.3 GM/DL (32-36); Mean Corpuscular Hemoglobin 30 PG (27-34); Mean Corpuscular Volume 90.9 FL (87-102); Mean Platelet Volume 9.9 FL (9.6-12.0); Monocytes % 9.2 % (1.7-12.7); Neutrophils % 55.5 % (38.7-73.9); Platelet Count 262 T/CUMM (130-400); Red Blood Count 4.39 MC/CUMM (3.8-5.5); Red Cell Distribution Width 15.8 % (9.3-17.3); White Blood Count 10.7 T/CUMM (4-12)
[2017-04-25] MEDS ORDERED: DEXTROSE 5% NACL 0.9% 1,000 ML IV SCH (03:36)
[2017-04-25 05:16] LABS: Calcium 8.4 MG/DL (8.5-10.1); Potassium 3.7 MMOL/L (3.5-5.1)
[2017-04-25 06:52] LABS: Calcium 8.4 MG/DL (8.5-10.1); Osmolality,Calculated 281.8 MOS/KG (273-304); Potassium 3.7 MMOL/L (3.5-5.1)
[2017-04-25] MEDS ORDERED: DEXTROSE 50% 25 GM/50 ML VIAL IV PRN (07:53)
[2017-04-25] MEDS ORDERED: GLUCAGON 1 MG VIAL IM PRN ×2 (07:53→09:36)
[2017-04-25] MEDS: GABAPENTIN 100 MG CAPSULE PO SCH ×3 (09:00→21:49)
[2017-04-25] MEDS: ASPIRIN EC 81 MG TABLET PO SCH (09:01)
[2017-04-25] MEDS: ZINC OXIDE PASTE 113 GM TUBE TOP SCH ×2 (09:01→21:51)
[2017-04-25] MEDS: INSULIN NPH/REGULAR 70/30 100 UNIT/ML SUBCUT SCH (09:01)
[2017-04-25] MEDS: CLOPIDOGREL 75 MG TABLET PO SCH (09:01)
[2017-04-25] MEDS: CARVEDILOL 6.25 MG TABLET PO SCH ×2 (09:01→17:36)
[2017-04-25] MEDS: LURASIDONE 40 MG TABLET PO SCH (09:02)
[2017-04-25] MEDS ORDERED: INFLUENZA VIRUS VACCINE 0.5 ML SYRINGE IM ONE (10:43)
[2017-04-25] MEDS: INSULIN LISPRO 100 UNIT/ML SUBCUT SCH ×3 (12:07→21:49)
[2017-04-25] MEDS ORDERED: INSULIN NPH/REGULAR 70/30 100 UNIT/ML SUBCUT SCH (16:30)
[2017-04-25] MEDS ORDERED: FUROSEMIDE 20 MG/2 ML VIAL IV PRN (19:35)
[2017-04-25] MEDS: ALBUTEROL/IPRATROPIUM 3 ML NEB RESP TX PRN (19:52)
[2017-04-25] MEDS: ENOXAPARIN 30 MG/0.3 ML SYRINGE SUBCUT SCH (21:49)
[2017-04-25] MEDS: AMITRIPTYLINE 50 MG TABLET PO SCH (21:49)
[2017-04-25] MEDS: ATORVASTATIN 80 MG TABLET PO SCH (21:49)
[2017-04-26 04:32] LABS: Basophils # 0.1 10*3/uL (0.0-0.2); Basophils % 1.5 % (0.0-0.8); Eosinophils # 0.5 10*3/uL (0.0-0.87); Eosinophils % 5.9 % (0.00-10.9); Hematocrit 37.6 VOL% (42.0-52.0); Hemoglobin 12.5 GM/DL (14.0-18.0); Immature Granulocytes % 0.3 %; Immature Granulocytes Absolute 0.02 #; Lymphocytes # 2.3 10*3/uL (1.4-4.0); Mean Corpuscular HGB Conc 33.2 GM/DL (32-36); Mean Corpuscular Hemoglobin 31 PG (27-34); Mean Corpuscular Volume 92.6 FL (87-102); Mean Platelet Volume 9.7 FL (9.6-12.0); Monocytes # 0.7 10*3/uL (0.11-0.8); Monocytes % 8.6 % (1.7-12.7); Neutrophils # 4.4 10*3/uL (1.4-7.4); Neutrophils % 54.7 % (38.7-73.9); Platelet Count 222 T/CUMM (130-400); Red Blood Count 4.06 MC/CUMM (3.8-5.5); Red Cell Distribution Width 16.3 % (9.3-17.3)
[2017-04-26 04:57] LABS: Osmolality,Calculated 276.8 MOS/KG (273-304)
[2017-04-26] MEDS: INSULIN LISPRO 100 UNIT/ML SUBCUT SCH ×4 (08:05→21:21)
[2017-04-26] MEDS: INSULIN NPH/REGULAR 70/30 100 UNIT/ML SUBCUT SCH (08:07)
[2017-04-26] MEDS ORDERED: PNEUMOCOCCAL VACCINE (23 VALENT) 0.5 ML VIAL IM ONE (09:00)
[2017-04-26] MEDS ORDERED: TUBERCULIN SKIN TEST 0.1 ML SYRINGE INTRADERM ONE (09:39)
[2017-04-26] MEDS: CLOPIDOGREL 75 MG TABLET PO SCH (09:44)
[2017-04-26] MEDS: GABAPENTIN 100 MG CAPSULE PO SCH ×3 (09:45→21:34)
[2017-04-26] MEDS: CARVEDILOL 6.25 MG TABLET PO SCH ×2 (09:45→17:01)
[2017-04-26] MEDS: LURASIDONE 40 MG TABLET PO SCH (09:45)
[2017-04-26] MEDS: FUROSEMIDE 20 MG TABLET PO SCH ×2 (09:45→17:00)
[2017-04-26] MEDS: ASPIRIN EC 81 MG TABLET PO SCH (09:45)
[2017-04-26] MEDS: INSULIN GLARGINE 100 UNIT/ML SUBCUT SCH (09:46)
[2017-04-26] MEDS: ZINC OXIDE PASTE 113 GM TUBE TOP SCH ×2 (09:46→21:35)
[2017-04-26] MEDS: INSULIN REGULAR 100 UNIT/ML SUBCUT SCH ×3 (12:57→21:21)
[2017-04-26] MEDS: ALBUTEROL/IPRATROPIUM 3 ML NEB RESP TX PRN (20:17)
[2017-04-26] MEDS: ATORVASTATIN 80 MG TABLET PO SCH (21:33)
[2017-04-26] MEDS: ENOXAPARIN 30 MG/0.3 ML SYRINGE SUBCUT SCH (21:34)
[2017-04-26] MEDS: AMITRIPTYLINE 50 MG TABLET PO SCH (21:35)
[2017-04-27 06:27] LABS: Basophils # 0.1 10*3/uL (0.0-0.2); Basophils % 1.5 % (0.0-0.8); Eosinophils # 0.5 10*3/uL (0.0-0.87); Eosinophils % 5.6 % (0.00-10.9); Hematocrit 38.4 VOL% (42.0-52.0); Hemoglobin 12.4 GM/DL (14.0-18.0); Immature Granulocytes % 0.3 %; Immature Granulocytes Absolute 0.02 #; Lymphocytes % 37.6 % (21.2-54.2); Mean Corpuscular HGB Conc 32.3 GM/DL (32-36); Mean Corpuscular Hemoglobin 30 PG (27-34); Mean Corpuscular Volume 93.2 FL (87-102); Mean Platelet Volume 10.1 FL (9.6-12.0); Monocytes # 0.6 10*3/uL (0.11-0.8); Neutrophils # 3.8 10*3/uL (1.4-7.4); Platelet Count 199 T/CUMM (130-400); Red Blood Count 4.12 MC/CUMM (3.8-5.5); Red Cell Distribution Width 16.2 % (9.3-17.3)
[2017-04-27 06:59] LABS: Calcium 7.7 MG/DL (8.5-10.1)
[2017-04-27] MEDS: INSULIN REGULAR 100 UNIT/ML SUBCUT SCH (07:51)
[2017-04-27] MEDS: INSULIN LISPRO 100 UNIT/ML SUBCUT SCH ×4 (07:51→21:44)
[2017-04-27] MEDS: FUROSEMIDE 20 MG TABLET PO SCH ×2 (08:49→16:05)
[2017-04-27] MEDS: ASPIRIN EC 81 MG TABLET PO SCH (08:49)
[2017-04-27] MEDS: CLOPIDOGREL 75 MG TABLET PO SCH (08:49)
[2017-04-27] MEDS: ZINC OXIDE PASTE 113 GM TUBE TOP SCH ×2 (08:50→21:44)
[2017-04-27] MEDS: LURASIDONE 40 MG TABLET PO SCH (08:50)
[2017-04-27] MEDS: CARVEDILOL 6.25 MG TABLET PO SCH ×2 (08:50→16:05)
[2017-04-27] MEDS: GABAPENTIN 100 MG CAPSULE PO SCH ×3 (08:50→21:44)
[2017-04-27] MEDS: INSULIN GLARGINE 100 UNIT/ML SUBCUT SCH ×3 (08:51→12:02)
[2017-04-27] MEDS: POTASSIUM CHLORIDE 20 MEQ TABLET PO SCH (14:45)
[2017-04-27] MEDS: AMITRIPTYLINE 50 MG TABLET PO SCH (21:44)
[2017-04-27] MEDS: ENOXAPARIN 30 MG/0.3 ML SYRINGE SUBCUT SCH (21:44)
[2017-04-27] MEDS: ATORVASTATIN 80 MG TABLET PO SCH (21:45)
[2017-04-28 05:42] LABS: Calcium 8.6 MG/DL (8.5-10.1); Potassium 4.3 MMOL/L (3.5-5.1)
[2017-04-28] MEDS: INSULIN LISPRO 100 UNIT/ML SUBCUT SCH ×4 (08:05→21:03)
[2017-04-28] MEDS: FUROSEMIDE 20 MG TABLET PO SCH ×2 (09:52→17:25)
[2017-04-28] MEDS: POTASSIUM CHLORIDE 20 MEQ TABLET PO SCH (09:53)
[2017-04-28] MEDS: ASPIRIN EC 81 MG TABLET PO SCH (09:53)
[2017-04-28] MEDS: CARVEDILOL 6.25 MG TABLET PO SCH ×2 (09:53→17:26)
[2017-04-28] MEDS: GABAPENTIN 100 MG CAPSULE PO SCH ×3 (09:53→21:02)
[2017-04-28] MEDS: CLOPIDOGREL 75 MG TABLET PO SCH (09:54)
[2017-04-28] MEDS: LURASIDONE 40 MG TABLET PO SCH (10:07)
[2017-04-28] MEDS: INSULIN GLARGINE 100 UNIT/ML SUBCUT SCH (10:08)
[2017-04-28] MEDS: ZINC OXIDE PASTE 113 GM TUBE TOP SCH ×2 (10:08→21:03)
[2017-04-28] MEDS: ENOXAPARIN 30 MG/0.3 ML SYRINGE SUBCUT SCH (21:02)
[2017-04-28] MEDS: AMITRIPTYLINE 50 MG TABLET PO SCH ×2 (21:02→21:07)
[2017-04-28] MEDS: ATORVASTATIN 80 MG TABLET PO SCH (21:02)
[2017-04-28] MEDS: DESITIN 4OZ/NYSTATIN 15 GRAM MIXTURE PASTE TOP SCH (21:03)
[2017-04-29 03:50] LABS: Osmolality,Calculated 273.2 MOS/KG (273-304)
[2017-04-29] MEDS: INSULIN LISPRO 100 UNIT/ML SUBCUT SCH ×4 (09:59→20:57)
[2017-04-29] MEDS: GABAPENTIN 100 MG CAPSULE PO SCH ×3 (10:00→20:57)
[2017-04-29] MEDS: POTASSIUM CHLORIDE 20 MEQ TABLET PO SCH (10:00)
[2017-04-29] MEDS: ASPIRIN EC 81 MG TABLET PO SCH (10:01)
[2017-04-29] MEDS: CARVEDILOL 6.25 MG TABLET PO SCH ×2 (10:01→17:59)
[2017-04-29] MEDS: CLOPIDOGREL 75 MG TABLET PO SCH (10:01)
[2017-04-29] MEDS: ZINC OXIDE PASTE 113 GM TUBE TOP SCH ×2 (10:02→20:58)
[2017-04-29] MEDS: FUROSEMIDE 20 MG TABLET PO SCH (10:02)
[2017-04-29] MEDS: INSULIN GLARGINE 100 UNIT/ML SUBCUT SCH (10:11)
[2017-04-29] MEDS: LURASIDONE 40 MG TABLET PO SCH (10:16)
[2017-04-29] MEDS: DESITIN 4OZ/NYSTATIN 15 GRAM MIXTURE PASTE TOP SCH ×2 (12:24→20:58)
[2017-04-29] MEDS ORDERED: SODIUM CHLORIDE 0.9% 250 ML IV ONE (14:38)
[2017-04-29] MEDS: INSULIN REGULAR 100 UNIT/ML SUBCUT SCH ×2 (17:16→17:50)
[2017-04-29] MEDS: CEFEPIME 2,000 MG in SYRINGE 1 EACH IV SCH (17:51)
[2017-04-29 19:45] LABS: Apearance,Urine CLEAR (Clear); Bilirubin,Urine Negative (Negative); Blood, Urine Small mg/dL (Negative); Glucose,Urine (UA) >=500 mg/dL (Negative); Hyaline Casts,Urine 3 /LPF (0-3); Ketones,Urine Negative (Negative); Mucus,Urine Occasional /LPF (Occasional); Nitrite,Urine Negative (Negative); Protein,Urine 100 MG/DL; RBC,Urine 4 /HPF (0-4); Urine Color Yellow (Yellow); Urine Specific Gravity 1.009 (1.001-1.035); Urine Urobilinogen < 2.0 EU/DL (0.2-1.0); WBC,Urine <1 /HPF (0-6)
[2017-04-29] MEDS: AMITRIPTYLINE 50 MG TABLET PO SCH (20:50)
[2017-04-29] MEDS: ATORVASTATIN 80 MG TABLET PO SCH (20:57)
[2017-04-29] MEDS: ENOXAPARIN 30 MG/0.3 ML SYRINGE SUBCUT SCH (20:57)
[2017-04-30] MEDS: CEFEPIME 2,000 MG in SYRINGE 1 EACH IV SCH ×4 (01:11→23:39)
[2017-04-30 05:51] LABS: Calcium 8.1 MG/DL (8.5-10.1); Potassium 5.1 MMOL/L (3.5-5.1)
[2017-04-30] MEDS: INSULIN GLARGINE 100 UNIT/ML SUBCUT SCH (10:13)
[2017-04-30] MEDS: INSULIN LISPRO 100 UNIT/ML SUBCUT SCH ×4 (10:13→20:25)
[2017-04-30] MEDS: CLOPIDOGREL 75 MG TABLET PO SCH (10:15)
[2017-04-30] MEDS: GABAPENTIN 100 MG CAPSULE PO SCH ×3 (10:15→20:29)
[2017-04-30] MEDS: FUROSEMIDE 20 MG TABLET PO SCH (10:16)
[2017-04-30] MEDS: CARVEDILOL 6.25 MG TABLET PO SCH ×2 (10:16→17:16)
[2017-04-30] MEDS: ASPIRIN EC 81 MG TABLET PO SCH (10:16)
[2017-04-30] MEDS: LURASIDONE 40 MG TABLET PO SCH (10:20)
[2017-04-30] MEDS: INSULIN REGULAR 100 UNIT/ML SUBCUT SCH ×3 (10:21→17:18)
[2017-04-30] MEDS: ZINC OXIDE PASTE 113 GM TUBE TOP SCH ×2 (17:50→20:30)
[2017-04-30] MEDS: DESITIN 4OZ/NYSTATIN 15 GRAM MIXTURE PASTE TOP SCH ×2 (17:50→20:30)
[2017-04-30] MEDS: AMITRIPTYLINE 50 MG TABLET PO SCH (20:25)
[2017-04-30] MEDS: ATORVASTATIN 80 MG TABLET PO SCH (20:29)
[2017-04-30] MEDS: ENOXAPARIN 30 MG/0.3 ML SYRINGE SUBCUT SCH (20:29)
[2017-05-01] MEDS: INSULIN LISPRO 100 UNIT/ML SUBCUT SCH ×4 (08:19→20:52)
[2017-05-01] MEDS: CARVEDILOL 6.25 MG TABLET PO SCH ×2 (08:57→17:00)
[2017-05-01] MEDS: LURASIDONE 40 MG TABLET PO SCH (08:57)
[2017-05-01] MEDS: CLOPIDOGREL 75 MG TABLET PO SCH (08:58)
[2017-05-01] MEDS: FUROSEMIDE 20 MG TABLET PO SCH (08:58)
[2017-05-01] MEDS: GABAPENTIN 100 MG CAPSULE PO SCH ×3 (08:58→20:51)
[2017-05-01] MEDS: ASPIRIN EC 81 MG TABLET PO SCH (08:58)
[2017-05-01] MEDS: CEFEPIME 2,000 MG in SYRINGE 1 EACH IV SCH ×2 (09:02→17:00)
[2017-05-01] MEDS: INSULIN REGULAR 100 UNIT/ML SUBCUT SCH ×3 (09:06→16:29)
[2017-05-01] MEDS: INSULIN GLARGINE 100 UNIT/ML SUBCUT SCH (09:06)
[2017-05-01] MEDS: ZINC OXIDE PASTE 113 GM TUBE TOP SCH ×2 (09:12→20:51)
[2017-05-01] MEDS: DESITIN 4OZ/NYSTATIN 15 GRAM MIXTURE PASTE TOP SCH ×2 (09:13→20:51)
[2017-05-01] MEDS: ENOXAPARIN 40 MG/0.4 ML SYRINGE SUBCUT SCH (20:50)
[2017-05-01] MEDS: ATORVASTATIN 80 MG TABLET PO SCH (20:50)
[2017-05-01] MEDS: AMITRIPTYLINE 50 MG TABLET PO SCH (20:52)
[2017-05-02] MEDS: CEFEPIME 2,000 MG in SYRINGE 1 EACH IV SCH ×4 (00:52→23:29)
[2017-05-02 06:03] LABS: Basophils # 0.1 10*3/uL (0.0-0.2); Basophils % 1.8 % (0.0-0.8); Eosinophils # 0.5 10*3/uL (0.0-0.87); Eosinophils % 6.3 % (0.00-10.9); Hemoglobin 10.5 GM/DL (14.0-18.0); Immature Granulocytes % 0.3 %; Immature Granulocytes Absolute 0.02 #; Lymphocytes # 2.2 10*3/uL (1.4-4.0); Mean Corpuscular HGB Conc 31.8 GM/DL (32-36); Mean Corpuscular Hemoglobin 31 PG (27-34); Mean Corpuscular Volume 96.8 FL (87-102); Mean Platelet Volume 10.7 FL (9.6-12.0); Monocytes # 0.7 10*3/uL (0.11-0.8); Monocytes % 10.4 % (1.7-12.7); Neutrophils # 3.6 10*3/uL (1.4-7.4); Neutrophils % 50.2 % (38.7-73.9); Platelet Count 273 T/CUMM (130-400); Red Blood Count 3.41 MC/CUMM (3.8-5.5); Red Cell Distribution Width 16.7 % (9.3-17.3); White Blood Count 7.1 T/CUMM (4-12)
[2017-05-02] MEDS: INSULIN LISPRO 100 UNIT/ML SUBCUT SCH ×4 (08:14→20:40)
[2017-05-02] MEDS: ASPIRIN EC 81 MG TABLET PO SCH (08:27)
[2017-05-02] MEDS: FUROSEMIDE 20 MG TABLET PO SCH (08:27)
[2017-05-02] MEDS: GABAPENTIN 100 MG CAPSULE PO SCH ×3 (08:27→20:40)
[2017-05-02] MEDS: CARVEDILOL 6.25 MG TABLET PO SCH ×2 (08:27→18:07)
[2017-05-02] MEDS: CLOPIDOGREL 75 MG TABLET PO SCH (08:27)
[2017-05-02] MEDS: LURASIDONE 40 MG TABLET PO SCH (08:28)
[2017-05-02] MEDS: INSULIN REGULAR 100 UNIT/ML SUBCUT SCH ×3 (08:29→16:42)
[2017-05-02] MEDS: INSULIN GLARGINE 100 UNIT/ML SUBCUT SCH (08:29)
[2017-05-02] MEDS: ZINC OXIDE PASTE 113 GM TUBE TOP SCH ×2 (08:37→20:40)
[2017-05-02] MEDS: DESITIN 4OZ/NYSTATIN 15 GRAM MIXTURE PASTE TOP SCH ×2 (08:37→20:40)
[2017-05-02] MEDS: ATORVASTATIN 80 MG TABLET PO SCH (20:40)
[2017-05-02] MEDS: ENOXAPARIN 40 MG/0.4 ML SYRINGE SUBCUT SCH (20:41)
[2017-05-02] MEDS: AMITRIPTYLINE 50 MG TABLET PO SCH (20:41)
[2017-05-03 06:56] LABS: Osmolality,Calculated 280.1 MOS/KG (273-304); Potassium 5.1 MMOL/L (3.5-5.1)
[2017-05-03] MEDS: INSULIN LISPRO 100 UNIT/ML SUBCUT SCH ×3 (07:55→17:22)
[2017-05-03] MEDS: INSULIN REGULAR 100 UNIT/ML SUBCUT SCH ×3 (07:55→17:23)
[2017-05-03] MEDS: GABAPENTIN 100 MG CAPSULE PO SCH ×2 (09:40→16:30)
[2017-05-03] MEDS: ASPIRIN EC 81 MG TABLET PO SCH (09:40)
[2017-05-03] MEDS: CARVEDILOL 6.25 MG TABLET PO SCH ×2 (09:40→17:23)
[2017-05-03] MEDS: LURASIDONE 40 MG TABLET PO SCH (09:40)
[2017-05-03] MEDS: CLOPIDOGREL 75 MG TABLET PO SCH (09:41)
[2017-05-03] MEDS: FUROSEMIDE 20 MG TABLET PO SCH (09:41)
[2017-05-03] MEDS: CEFEPIME 2,000 MG in SYRINGE 1 EACH IV SCH ×2 (09:44→16:30)
[2017-05-03] MEDS: DESITIN 4OZ/NYSTATIN 15 GRAM MIXTURE PASTE TOP SCH (09:48)
[2017-05-03] MEDS: INSULIN GLARGINE 100 UNIT/ML SUBCUT SCH (09:48)
[2017-05-03] MEDS: ZINC OXIDE PASTE 113 GM TUBE TOP SCH (09:50)
[2017-05-03 10:54] VITALS: BP 128/67
== END 2017-05-03 16:51 | DRG 637 ==
LOC: N.ED 15:27 → SUATTDRO 17:45 → N.EDINP 17:45 → N.ICU 18:35 → N.3E 04-27 15:08
PROVIDERS: ADMIT Internal Medicine; ATTEND Internal Medicine Geriatric Medicine